=== PATIENT | female | born 2000 | race Caucasian/White ===

== ENCOUNTER 2023-01-04 22:40 | Day surgery (SDC) | payer OTHER ==
[2023-01-04] MEDS ORDERED: hydrALAZINE 20 MG/ML VIAL SLOW IVP PRN (22:52)
[2023-01-04 23:09] VITALS: BMI 31.0
== END 2023-01-05 00:03 | disposition home or self-care (01) ==
LOC: CSHLD/OP 22:40
PROVIDERS: ATTEND Obstetrics & Gynecology
DX: O99.891 Other specified diseases and conditions complicating pregnancy (principal); R10.9 Unspecified abdominal pain; Z79.899 Other long term (current) drug therapy; Z79.82 Long term (current) use of aspirin; V49.40XA Driver injured in collision with unspecified motor vehicles in traffic accident, initial encounter
CPT/HCPCS: 99283

== ENCOUNTER 2023-04-01 15:22 | Day surgery (SDC) | payer OTHER ==
[2023-04-01 16:04] VITALS: BMI 32.9
[2023-04-01] MEDS ORDERED: hydrALAZINE 20 MG/ML VIAL SLOW IVP PRN (16:35)
== END 2023-04-01 18:21 | disposition home or self-care (01) ==
LOC: CSHLD/OP 15:22
PROVIDERS: ATTEND Obstetrics & Gynecology
DX: O36.8130 Decreased fetal movements, third trimester, not applicable or unspecified (principal); O47.03 False labor before 37 completed weeks of gestation, third trimester; Z3A.35 35 weeks gestation of pregnancy; Z79.899 Other long term (current) drug therapy
CPT/HCPCS: 76819